=== PATIENT | female | born 1960 | race Caucasian/White ===

== ENCOUNTER 2024-01-03 08:26 | Day surgery (SDC) | payer MEDICARE ==
[~2024-01-03] VITALS: Ht 170.2 cm; Wt 99.8 kg
[~2024-01-03 08:26] MED LIST: FLAX SEED1000 MG PO; MYRBETRIQ25 MG PO; TUMS E-X 750750 MG PO
[2024-01-03] MEDS ORDERED: FAMOTIDINE 10MG/ML 2ML SDV IV ONE (08:40)
[2024-01-03] MEDS ORDERED: LACTATED RINGER'S 1,000 ML IV ONE (08:41)
[2024-01-03 10:37] VITALS: BP 157/87
[2024-01-03] MEDS ORDERED: LIDOCAINE HCL 2% 2ML SDV IV ONE (12:40)
[2024-01-03] MEDS ORDERED: PROPOFOL 500 MG/50 ML VIAL IV ONE (12:40)
== END 2024-01-03 10:54 | disposition home or self-care (01) ==
LOC: ENDO 08:26
PROVIDERS: ATTEND Surgery
PROC: 0DJD8ZZ Inspection of Lower Intestinal Tract, Via Natural or Artificial Opening Endoscopic (ICD-10-PCS; principal; 2024-01-03)
DX: Z12.11 Encounter for screening for malignant neoplasm of colon (principal)